=== PATIENT | female | born 1940 | race Caucasian/White ===

== ENCOUNTER 2019-11-08 10:57 | Inpatient (IN) ==
[2019-11-08] MEDS ORDERED: Mag Hydrox/Al Hydrox/Simeth 30 ML UDC PO PRN (16:15)
[2019-11-08] MEDS ORDERED: Ondansetron 4 MG/2 ML VIAL IVP PRN (16:16)
[2019-11-08] MEDS ORDERED: Fluticasone Propionate Nasal 50 MCG/SPRAY BOTTLE NS PRN (16:23)
[2019-11-08] MEDS ORDERED: Ergocalciferol (VIT D2) 50,000 UNIT (1.25MG) CAP PO SCH (16:30)
[2019-11-08] MEDS: *HR* HYDROcodone/Acet 5/325 mg TABLET PO PRN (21:51)
[2019-11-08] MEDS: Methocarbamol 500 MG TABLET PO SCH (21:51)
[2019-11-08] MEDS: Apixaban 5 MG TABLET PO SCH (21:52)
[2019-11-08] MEDS: Melatonin 3 MG TABLET PO PRN (21:52)
[2019-11-09 05:40] LABS: Basophils % 0.4 %; Eosinophils # 0.2 K/mcL (0.0-0.6); Immature Granulocytes % 0.5 % (0-4); Lymphocytes # 1.8 K/mcL (0.6-4.6); Lymphocytes % 18.9 %; Mean Corpuscular HGB Conc 31.6 g/dL (31.6-35.5); Mean Corpuscular Volume 98.2 fL (83.0-100.0); Monocytes # 1.1 K/mcL (0.0-1.3); Monocytes % 12.2 %; Neutrophils # 6.1 K/mcL (1.6-8.9); Platelet Count 196 K/mcL (140-400); Red Blood Count 3.87 M/mcL (3.82-4.97); Red Cell Distribution Width 13.6 % (11.5-14.5); White Blood Count 9.3 K/mcL (4.3-11.1)
[2019-11-09 06:12] LABS: Albumin/Globulin Ratio 1.2 (1.1-2.2); Bilirubin,Total 0.6 mg/dL (0.3-1.0); Calcium 8.7 mg/dL (8.6-10.3); Globulin 2.6 g/dL (2.4-3.5); Total Protein 5.6 g/dL (6.4-8.9)
[2019-11-09] MEDS: *HR* HYDROcodone/Acet 5/325 mg TABLET PO PRN ×2 (06:26→13:09)
[2019-11-09] MEDS ORDERED: Enoxaparin Weight Dosing SQ SCH (09:00)
[2019-11-09] MEDS: BuPROPion XL (24 HR) 150 MG TABLET PO SCH (09:11)
[2019-11-09] MEDS: *HR* Amiodarone 200 MG TABLET PO SCH (09:11)
[2019-11-09] MEDS: Methocarbamol 500 MG TABLET PO SCH ×2 (09:11→19:56)
[2019-11-09] MEDS: Apixaban 5 MG TABLET PO SCH ×2 (09:12→19:57)
[2019-11-09] MEDS: Melatonin 3 MG TABLET PO PRN (19:57)
[2019-11-10] MEDS: *HR* HYDROcodone/Acet 5/325 mg TABLET PO PRN ×2 (08:00→23:52)
[2019-11-10] MEDS: Methocarbamol 500 MG TABLET PO SCH ×2 (08:00→19:24)
[2019-11-10] MEDS: Apixaban 5 MG TABLET PO SCH ×2 (08:00→19:24)
[2019-11-10] MEDS: BuPROPion XL (24 HR) 150 MG TABLET PO SCH (08:01)
[2019-11-10] MEDS: *HR* Amiodarone 200 MG TABLET PO SCH (08:01)
[2019-11-10] MEDS: Melatonin 3 MG TABLET PO PRN (19:24)
[2019-11-11] MEDS: *HR* HYDROcodone/Acet 5/325 mg TABLET PO PRN ×3 (05:44→17:54)
[2019-11-11] MEDS: *HR* Amiodarone 200 MG TABLET PO SCH (08:18)
[2019-11-11] MEDS: BuPROPion XL (24 HR) 150 MG TABLET PO SCH (08:18)
[2019-11-11] MEDS: Methocarbamol 500 MG TABLET PO SCH ×2 (08:18→20:07)
[2019-11-11] MEDS: Apixaban 5 MG TABLET PO SCH ×2 (08:18→20:08)
[2019-11-11] MEDS: Ergocalciferol (VIT D2) 50,000 UNIT (1.25MG) CAP PO SCH (17:54)
[2019-11-11] MEDS: Melatonin 3 MG TABLET PO PRN (20:07)
[2019-11-12] MEDS: *HR* HYDROcodone/Acet 5/325 mg TABLET PO PRN ×3 (06:45→20:51)
[2019-11-12] MEDS: Apixaban 5 MG TABLET PO SCH ×2 (08:22→20:46)
[2019-11-12] MEDS: BuPROPion XL (24 HR) 150 MG TABLET PO SCH (08:22)
[2019-11-12] MEDS: Methocarbamol 500 MG TABLET PO SCH ×2 (08:22→20:49)
[2019-11-12] MEDS: *HR* Amiodarone 200 MG TABLET PO SCH (08:22)
[2019-11-12] MEDS: Melatonin 3 MG TABLET PO PRN (20:52)
[2019-11-13] MEDS: Methocarbamol 500 MG TABLET PO SCH ×2 (09:16→19:51)
[2019-11-13] MEDS: Apixaban 5 MG TABLET PO SCH ×2 (09:16→19:51)
[2019-11-13] MEDS: *HR* Amiodarone 200 MG TABLET PO SCH (09:17)
[2019-11-13] MEDS: BuPROPion XL (24 HR) 150 MG TABLET PO SCH (09:17)
[2019-11-13] MEDS: *HR* HYDROcodone/Acet 5/325 mg TABLET PO PRN (17:54)
[2019-11-14] MEDS: *HR* HYDROcodone/Acet 5/325 mg TABLET PO PRN ×3 (00:42→19:39)
[2019-11-14] MEDS: Apixaban 5 MG TABLET PO SCH ×2 (08:13→19:38)
[2019-11-14] MEDS: BuPROPion XL (24 HR) 150 MG TABLET PO SCH (08:13)
[2019-11-14] MEDS: *HR* Amiodarone 200 MG TABLET PO SCH (08:13)
[2019-11-14] MEDS: Methocarbamol 500 MG TABLET PO SCH ×2 (08:13→19:39)
[2019-11-14] MEDS: Melatonin 3 MG TABLET PO PRN (19:38)
[2019-11-15] MEDS: *HR* HYDROcodone/Acet 5/325 mg TABLET PO PRN ×2 (04:34→11:17)
[2019-11-15 05:16] LABS: Hematocrit 43.1 % (35.3-44.9); Hemoglobin 13.7 g/dL (11.5-15.4); Mean Corpuscular HGB Conc 31.8 g/dL (31.6-35.5); Mean Corpuscular Hemoglobin 31.1 pg (28.0-33.3); Mean Platelet Volume 11.8 fL (9.4-12.4); Platelet Count 264 K/mcL (140-400); Red Cell Distribution Width 13.2 % (11.5-14.5)
[2019-11-15 05:34] LABS: Calcium 9.6 mg/dL (8.6-10.3); Potassium 4.3 mEq/L (3.5-5.1)
[2019-11-15] MEDS: Apixaban 5 MG TABLET PO SCH ×2 (08:12→20:04)
[2019-11-15] MEDS: *HR* Amiodarone 200 MG TABLET PO SCH (08:13)
[2019-11-15] MEDS: BuPROPion XL (24 HR) 150 MG TABLET PO SCH (08:13)
[2019-11-15] MEDS: Methocarbamol 500 MG TABLET PO SCH ×2 (08:13→20:05)
[2019-11-15] MEDS: Melatonin 3 MG TABLET PO PRN (20:04)
[2019-11-16] MEDS: *HR* HYDROcodone/Acet 5/325 mg TABLET PO PRN ×3 (01:21→20:25)
[2019-11-16] MEDS: *HR* Amiodarone 200 MG TABLET PO SCH (08:12)
[2019-11-16] MEDS: Methocarbamol 500 MG TABLET PO SCH ×2 (08:12→20:25)
[2019-11-16] MEDS: Apixaban 5 MG TABLET PO SCH ×2 (08:12→20:26)
[2019-11-16] MEDS: BuPROPion XL (24 HR) 150 MG TABLET PO SCH (08:12)
[2019-11-16] MEDS: Melatonin 3 MG TABLET PO PRN (20:26)
[2019-11-17] MEDS: Apixaban 5 MG TABLET PO SCH ×2 (08:31→20:08)
[2019-11-17] MEDS: BuPROPion XL (24 HR) 150 MG TABLET PO SCH (08:31)
[2019-11-17] MEDS: *HR* Amiodarone 200 MG TABLET PO SCH (08:31)
[2019-11-17] MEDS: Methocarbamol 500 MG TABLET PO SCH ×2 (08:31→20:10)
[2019-11-17] MEDS: *HR* HYDROcodone/Acet 5/325 mg TABLET PO PRN ×2 (08:38→15:59)
[2019-11-17] MEDS: Melatonin 3 MG TABLET PO PRN (20:10)
[2019-11-18] MEDS: *HR* HYDROcodone/Acet 5/325 mg TABLET PO PRN (05:08)
[2019-11-18 06:52] LABS: Calcium 9.2 mg/dL (8.6-10.3); Potassium 4.3 mEq/L (3.5-5.1)
[2019-11-18] MEDS: *HR* Amiodarone 200 MG TABLET PO SCH (09:08)
[2019-11-18] MEDS: BuPROPion XL (24 HR) 150 MG TABLET PO SCH (09:08)
[2019-11-18] MEDS: Apixaban 5 MG TABLET PO SCH ×2 (09:08→20:19)
[2019-11-18] MEDS: Methocarbamol 500 MG TABLET PO SCH ×2 (09:08→20:18)
[2019-11-18] MEDS: Ergocalciferol (VIT D2) 50,000 UNIT (1.25MG) CAP PO SCH ×2 (09:53→10:12)
[2019-11-18] MEDS: Melatonin 3 MG TABLET PO PRN (20:19)
[2019-11-19] MEDS: Apixaban 5 MG TABLET PO SCH ×2 (08:34→20:05)
[2019-11-19] MEDS: *HR* Amiodarone 200 MG TABLET PO SCH (08:34)
[2019-11-19] MEDS: BuPROPion XL (24 HR) 150 MG TABLET PO SCH (08:34)
[2019-11-19] MEDS: Methocarbamol 500 MG TABLET PO SCH ×2 (08:34→20:05)
[2019-11-19] MEDS: Melatonin 3 MG TABLET PO PRN (20:05)
[2019-11-20] MEDS: BuPROPion XL (24 HR) 150 MG TABLET PO SCH (08:32)
[2019-11-20] MEDS: Apixaban 5 MG TABLET PO SCH ×2 (08:32→20:01)
[2019-11-20] MEDS: Methocarbamol 500 MG TABLET PO SCH ×2 (08:32→20:01)
[2019-11-20] MEDS: *HR* Amiodarone 200 MG TABLET PO SCH (08:32)
[2019-11-20] MEDS: Melatonin 3 MG TABLET PO PRN (22:00)
[2019-11-21] MEDS: Apixaban 5 MG TABLET PO SCH ×2 (06:46→19:51)
[2019-11-21] MEDS: *HR* Amiodarone 200 MG TABLET PO SCH (06:46)
[2019-11-21] MEDS: Methocarbamol 500 MG TABLET PO SCH ×2 (06:46→19:51)
[2019-11-21] MEDS: BuPROPion XL (24 HR) 150 MG TABLET PO SCH (06:46)
[2019-11-21] MEDS: *HR* HYDROcodone/Acet 5/325 mg TABLET PO PRN (19:51)
[2019-11-22] MEDS: Methocarbamol 500 MG TABLET PO SCH ×2 (07:46→21:59)
[2019-11-22] MEDS: BuPROPion XL (24 HR) 150 MG TABLET PO SCH (07:46)
[2019-11-22] MEDS: Apixaban 5 MG TABLET PO SCH ×2 (07:46→21:59)
[2019-11-22] MEDS: *HR* Amiodarone 200 MG TABLET PO SCH (07:46)
[2019-11-22] MEDS: Acetaminophen 325 MG TABLET PO PRN ×2 (11:13→18:26)
[2019-11-23] MEDS: Acetaminophen 325 MG TABLET PO PRN ×4 (02:28→21:17)
[2019-11-23] MEDS: Methocarbamol 500 MG TABLET PO SCH ×2 (08:05→21:17)
[2019-11-23] MEDS: Apixaban 5 MG TABLET PO SCH ×2 (08:05→21:16)
[2019-11-23] MEDS: BuPROPion XL (24 HR) 150 MG TABLET PO SCH (08:05)
[2019-11-23] MEDS: *HR* Amiodarone 200 MG TABLET PO SCH (08:05)
[2019-11-23] MEDS: amLODIPine 5 MG TABLET PO SCH (11:03)
[2019-11-23] MEDS ORDERED: Ondansetron ODT 4 MG TAB.RAPDIS SL PRN (17:34)
[2019-11-23] MEDS: Melatonin 3 MG TABLET PO PRN (21:17)
[2019-11-24 06:02] LABS: Hematocrit 43.6 % (35.3-44.9); Hemoglobin 13.6 g/dL (11.5-15.4); Mean Corpuscular HGB Conc 31.2 g/dL (31.6-35.5); Mean Corpuscular Hemoglobin 30.5 pg (28.0-33.3); Mean Corpuscular Volume 97.8 fL (83.0-100.0); Mean Platelet Volume 11.7 fL (9.4-12.4); Platelet Count 211 K/mcL (140-400); Red Blood Count 4.46 M/mcL (3.82-4.97); Red Cell Distribution Width 13.4 % (11.5-14.5); White Blood Count 4.8 K/mcL (4.3-11.1)
[2019-11-24 06:19] LABS: Calcium 8.9 mg/dL (8.6-10.3); Magnesium 2.2 mg/dL (1.6-2.6)
[2019-11-24] MEDS: Methocarbamol 500 MG TABLET PO SCH ×2 (08:46→19:39)
[2019-11-24] MEDS: amLODIPine 5 MG TABLET PO SCH (08:46)
[2019-11-24] MEDS: *HR* Amiodarone 200 MG TABLET PO SCH (08:46)
[2019-11-24] MEDS: BuPROPion XL (24 HR) 150 MG TABLET PO SCH (08:46)
[2019-11-24] MEDS: Apixaban 5 MG TABLET PO SCH ×2 (08:46→19:38)
[2019-11-24] MEDS: Famotidine 20 MG TABLET PO SCH (16:24)
[2019-11-24] MEDS: Acetaminophen 325 MG TABLET PO PRN (19:39)
[2019-11-25] MEDS: Famotidine 20 MG TABLET PO SCH (06:57)
[2019-11-25] MEDS: *HR* Amiodarone 200 MG TABLET PO SCH (06:57)
[2019-11-25] MEDS: amLODIPine 5 MG TABLET PO SCH (06:58)
[2019-11-25] MEDS: Methocarbamol 500 MG TABLET PO SCH (09:43)
[2019-11-25] MEDS: Apixaban 5 MG TABLET PO SCH (09:44)
[2019-11-25] MEDS: BuPROPion XL (24 HR) 150 MG TABLET PO SCH (09:44)
[2019-11-25] MEDS: Ergocalciferol (VIT D2) 50,000 UNIT (1.25MG) CAP PO SCH (09:47)
[2019-11-25] MEDS ORDERED: cloNIDine HCl 0.1 MG TABLET PO ONE (11:40)
[2019-11-25 12:53] VITALS: BP 166/82
== END 2019-11-25 13:30 | disposition home health service (06) | DRG 560 ==
LOC: SUATTDRO 14:29 → INPGRE 14:29
PROVIDERS: ATTEND Family Medicine

== ENCOUNTER 2020-01-29 15:08 | Inpatient (IN) ==
[2020-01-30] MEDS ORDERED: Fluticasone Propionate Nasal 50 MCG/SPRAY BOTTLE NS PRN (18:32)
[2020-01-30] MEDS: Amoxicillin/Clavulanate 500 MG TABLET PO SCH (20:36)
[2020-01-30] MEDS: Apixaban 2.5 MG TABLET PO SCH (20:36)
[2020-01-31] MEDS: Acetaminophen 325 MG TABLET PO PRN ×5 (00:50→19:59)
[2020-01-31 05:01] LABS: Hematocrit 39.7 % (35.3-44.9); Hemoglobin 12.8 g/dL (11.5-15.4); Mean Corpuscular HGB Conc 32.2 g/dL (31.6-35.5); Mean Corpuscular Hemoglobin 30.2 pg (28.0-33.3); Mean Corpuscular Volume 93.6 fL (83.0-100.0); Mean Platelet Volume 11.4 fL (9.4-12.4); Platelet Count 255 K/mcL (140-400); Red Blood Count 4.24 M/mcL (3.82-4.97); Red Cell Distribution Width 14.4 % (11.5-14.5); White Blood Count 7.1 K/mcL (4.3-11.1)
[2020-01-31 05:18] LABS: Calcium 8.7 mg/dL (8.6-10.3); Potassium 3.4 mEq/L (3.5-5.1)
[2020-01-31] MEDS: BuPROPion XL (24 HR) 150 MG TABLET PO SCH (09:27)
[2020-01-31] MEDS: amLODIPine 5 MG TABLET PO SCH (09:27)
[2020-01-31] MEDS: Amoxicillin/Clavulanate 500 MG TABLET PO SCH ×2 (09:27→16:35)
[2020-01-31] MEDS: Apixaban 2.5 MG TABLET PO SCH ×2 (09:28→19:59)
[2020-02-01] MEDS: Acetaminophen 325 MG TABLET PO PRN ×2 (05:56→19:42)
[2020-02-01] MEDS ORDERED: Apixaban 2.5 MG TABLET ONE (08:19)
[2020-02-01] MEDS ORDERED: amLODIPine 5 MG TABLET ONE (08:19)
[2020-02-01] MEDS ORDERED: Amoxicillin/Clavulanate 500 MG TABLET ONE (08:19)
[2020-02-01] MEDS ORDERED: BuPROPion XL (24 HR) 150 MG TABLET PO ONE (08:19)
[2020-02-01] MEDS: Amoxicillin/Clavulanate 500 MG TABLET PO SCH ×2 (16:18→17:19)
[2020-02-01] MEDS: BuPROPion XL (24 HR) 150 MG TABLET PO SCH (16:19)
[2020-02-01] MEDS: Apixaban 2.5 MG TABLET PO SCH ×2 (16:19→19:42)
[2020-02-01] MEDS: amLODIPine 5 MG TABLET PO SCH (16:19)
[2020-02-02 05:24] LABS: Hematocrit 41.7 % (35.3-44.9); Hemoglobin 13.2 g/dL (11.5-15.4); Mean Corpuscular HGB Conc 31.7 g/dL (31.6-35.5); Mean Corpuscular Hemoglobin 30.1 pg (28.0-33.3); Mean Corpuscular Volume 95.2 fL (83.0-100.0); Mean Platelet Volume 11.1 fL (9.4-12.4); Platelet Count 285 K/mcL (140-400); Red Blood Count 4.38 M/mcL (3.82-4.97); Red Cell Distribution Width 14.6 % (11.5-14.5); White Blood Count 7.8 K/mcL (4.3-11.1)
[2020-02-02 05:46] LABS: Albumin 3.4 g/dL (3.5-5.7); Albumin/Globulin Ratio 1.3 (1.1-2.2); Bilirubin,Total 0.7 mg/dL (0.3-1.0); Calcium 8.6 mg/dL (8.6-10.3); Globulin 2.6 g/dL (2.4-3.5); Magnesium 2.2 mg/dL (1.6-2.6); Potassium 3.6 mEq/L (3.5-5.1)
[2020-02-02] MEDS: Amoxicillin/Clavulanate 500 MG TABLET PO SCH ×2 (08:03→17:13)
[2020-02-02] MEDS: Apixaban 2.5 MG TABLET PO SCH ×2 (08:03→20:35)
[2020-02-02] MEDS: amLODIPine 5 MG TABLET PO SCH (08:04)
[2020-02-02] MEDS: BuPROPion XL (24 HR) 150 MG TABLET PO SCH (08:04)
[2020-02-02] MEDS: Acetaminophen 325 MG TABLET PO PRN (20:36)
[2020-02-03] MEDS: Amoxicillin/Clavulanate 500 MG TABLET PO SCH ×2 (08:13→17:21)
[2020-02-03] MEDS: BuPROPion XL (24 HR) 150 MG TABLET PO SCH (08:13)
[2020-02-03] MEDS: Apixaban 2.5 MG TABLET PO SCH ×2 (08:13→19:27)
[2020-02-03] MEDS: amLODIPine 5 MG TABLET PO SCH (08:13)
[2020-02-03] MEDS: Acetaminophen 325 MG TABLET PO PRN ×2 (08:18→19:27)
[2020-02-04] MEDS: Amoxicillin/Clavulanate 500 MG TABLET PO SCH (08:16)
[2020-02-04] MEDS: Apixaban 2.5 MG TABLET PO SCH (08:17)
[2020-02-04] MEDS: BuPROPion XL (24 HR) 150 MG TABLET PO SCH (08:17)
[2020-02-04] MEDS: amLODIPine 5 MG TABLET PO SCH (08:17)
[2020-02-04 12:50] VITALS: BP 139/68
== END 2020-02-04 10:26 | disposition home health service (06) | DRG 445 ==
LOC: INPGRE 01-30 17:57
PROVIDERS: ADMIT Family Medicine; ATTEND Family Medicine